=== PATIENT | male | born 1960 | race Caucasian/White ===

== ENCOUNTER 2023-11-27 00:05 | Day surgery (SDC) | payer BC, SELFPAY ==
[2023-11-12 14:41] VITALS: BMI 33.4
[2023-11-27 06:49] VITALS: BP 162/89; PULSE 64; RESP 18; TEMP 36.4; O2SAT 98
[2023-11-27] MEDS: LACTATED RINGERS 1,000 ML 150 ML IV CONT (06:58)
--- NOTE | 2023-11-27 07:33 | P.PNAN_ITS ---
Anes - Initial Pre Proc Eval Procedure: Operation Date: 11/27/23 08:00 Proposed Procedures p Colonoscopy - Dmitri Nam MD Date/Time: 11/27/23 07:33 Surgeon: Dmitri Nam MD Pre Op Diagnosis: Family history malignant neoplasm digestive organs Patient Data Age: 63 Gender: M Height: 1.91 m Weight: 119.1 kg Last Vital Signs Temp 36.4 C L 11/27/23 06:49 Pulse 64 11/27/23 06:49 Resp 18 11/27/23 06:49 BP 162/89 H 11/27/23 06:49 Pulse Ox 98 11/27/23 06:49 O2 Del Method Room Air 11/27/23 06:49 Allergies Allergy/AdvReac Type Severity Reaction Status Date / Time No Known Allergies Allergy Verified 11/27/23 06:48 Home Medications Medication Instructions Recorded Confirmed Type cetirizine 10 mg tablet (Zyrtec) 10 mg PO DAILY 06/22/19 11/12/23 History fluticasone propionate 50 See Rx Instructions .Route 12/12/20 11/12/23 Rx mcg/actuation nasal .COMPLEX #16 mL spray,suspension zolpidem 5 mg tablet (Ambien) 5 mg PO .QHS #30 tabs 07/02/23 11/12/23 Rx rosuvastatin 5 mg tablet 5 mg PO DAILY #90 tabs 07/18/23 11/12/23 Rx escitalopram oxalate 10 mg tablet See Rx Instructions .Route 09/06/23 11/12/23 Rx .COMPLEX #90 tabs testosterone cypionate 100 mg/mL 100 mg IM .y4xmver #10 mL 10/04/23 11/12/23 Rx intramuscular oil Patient hx anesthesia problems: none Family hx anesthesia problems: none Results Review: All pre-operative results and documents have been reviewed as part of the pre- operative evaluation. [facility] Past Medical History Medical History Intention tremor Low testosterone Obesity Surgical History Surgical History History of carpal tunnel release History of parathyroidectomy Status post arthroscopy of left knee Family History Family History Father Family history of coronary artery disease Social History Social History Smoking status: Never smoker Second hand tobacco smoke exposure: No Alcohol intake: never Substance use: never Substance use type: does not use Living arrangements: with family Occupation/Education: occupation Gender identity (if verbalized by the patient): Male Spiritual care concerns: No Anes - Eval Final PreProcedure Day of Procedure 11/27/23 07:33 Patient weight: obese Heart: regular rate and rhythm Lungs: clear to auscultation Airway: Mallampati scale class II Neurological: alert and oriented Last oral intake: >/= 8 hours ASA classification: III Emergent: no Anesthetic plan: proceed Anesthesia type and monitoring: general GIVS and standard monitoring Results Review: All pre-operative results and documents have been reviewed as part of the pre- operative evaluation. Informed Consent: The patient's anesthetic plan and its attendant risks and benefits were discussed with the patient/family/POA. Questions were solicited and answers provided to the satisfaction of the patient/family/POA.
--- NOTE | 2023-11-27 07:58 | PM.HPGS ---
History of Present Illness History of Present Illness Consent: Risks, benefits, and alternatives have been discussed and questions answered. Patient agrees to proceed with procedure. Chief complaint: Family history malignant neoplasm digestive organs Narrative: Johnny Benoit is a 63 year old male with colon polyp in 2027 Review of Systems Review of Systems: All systems reviewed & are unremarkable except as noted in HPI and below PMFSH Past Medical History Medical History (Updated 11/27/23 @ 07:58 by Dmitri Nam MD) Colon polyp Intention tremor Low testosterone Obesity Surgical History Surgical History History of carpal tunnel release History of parathyroidectomy Status post arthroscopy of left knee Family History Family History Father Family history of coronary artery disease Social History Social History Smoking status: Never smoker Second hand tobacco smoke exposure: No Alcohol intake: never Substance use: never Substance use type: does not use Living arrangements: with family Occupation/Education: occupation Gender identity (if verbalized by the patient): Male Spiritual care concerns: No Meds Home Medications and Allergies Home Medications Medication Instructions Recorded Confirmed Type cetirizine 10 mg tablet (Zyrtec) 10 mg PO DAILY 06/22/19 11/12/23 History fluticasone propionate 50 See Rx Instructions .Route 12/12/20 11/12/23 Rx mcg/actuation nasal .COMPLEX #16 mL spray,suspension zolpidem 5 mg tablet (Ambien) 5 mg PO .QHS #30 tabs 07/02/23 11/12/23 Rx rosuvastatin 5 mg tablet 5 mg PO DAILY #90 tabs 07/18/23 11/12/23 Rx escitalopram oxalate 10 mg tablet See Rx Instructions .Route 09/06/23 11/12/23 Rx .COMPLEX #90 tabs testosterone cypionate 100 mg/mL 100 mg IM .y3sxrhf #10 mL 10/04/23 11/12/23 Rx intramuscular oil Allergies Allergy/AdvReac Type Severity Reaction Status Date / Time No Known Allergies Allergy Verified 11/27/23 06:48 Vital Signs Vital Signs - 24 hr 11/27/23 06:49 Temperature 97.5 F L Pulse Rate 64 Respiratory Rate 18 Blood Pressure 162/89 H Pulse Oximetry 98 Oxygen Delivery Room Air Exam Const: General: comfortable and no acute distress HENMT: Face/Nose/Sinus: Normal nares present Eyes: General: appearance normal, both eyes and all related structures Neck: Neck: no JVD Resp: Auscultation: clear to auscultation bilaterally Cardio: Rate: regular rate Rhythm: regular rhythm GI: Inspection: non-distended GI Palp: Yes Soft to palpation Skin: General skin exam: normal color Neuro: General: gait normal Speech: normal speech Extrem: General: normal to inspection Psych: Mental Status: mental status grossly normal Assessment and Plan Assessment and plan (1) Colon polyp: Code(s): K63.5 - Polyp of colon Status: Acute Assessment and Plan: colonoscopy
[2023-11-27 08:15] VITALS: BP 129/75; PULSE 60; RESP 18; O2SAT 97
[2023-11-27 08:25] VITALS: BP 139/82; PULSE 60; RESP 18; O2SAT 97
[2023-11-27 08:35] VITALS: BP 140/80; PULSE 60; RESP 18; O2SAT 98
== END 2023-11-27 08:42 | disposition home or self-care (01) ==
PROVIDERS: PCP Family Medicine; Visit Provider Internal Medicine Gastroenterology
PROC: 0DJD8ZZ Inspection of Lower Intestinal Tract, Via Natural or Artificial Opening Endoscopic (ICD-10-PCS; CPT 45378; principal; 2023-11-27 08:00)
DX: Z12.11 Encounter for screening for malignant neoplasm of colon (principal); D12.3 Benign neoplasm of transverse colon; D12.4 Benign neoplasm of descending colon; K63.5 Polyp of colon; K64.8 Other hemorrhoids; K57.30 Diverticulosis of large intestine without perforation or abscess without bleeding; G25.2 Other specified forms of tremor; E66.9 Obesity, unspecified; Z68.32 Body mass index [BMI] 32.0-32.9, adult; Z98.890 Other specified postprocedural states; Z96.652 Presence of left artificial knee joint; Z80.0 Family history of malignant neoplasm of digestive organs; Z82.49 Family history of ischemic heart disease and other diseases of the circulatory system
CPT/HCPCS: 45385; 88305; A9270; J2704; J7120